=== PATIENT | male | born 1960 | race Caucasian/White ===

== ENCOUNTER → 2020-11-09 | Day surgery (SDC) | payer OTHER ==
[~2020-11-09] VITALS: Ht 175.3 cm; Wt 103.4 kg
[~2020-11-09] MED LIST: ADVIL200 M1 PO; COZAAR25 MG PO; GENTLE LAXATIVE5 M1 PO; MELOXICAM15 MG PO; METFORMIN HCL500 MG PO; PROTONIX40 MG PO
[2020-11-09 07:55] LABS: HCT 40.7 % (42.0-52.0); HGB 14.2 g/dl (13.2-18.0); MCH 33.3 pg (25.0-31.0); MCHC 34.9 g/dL (32.0-36.0); MCV 95.5 fL (78.0-100.0); MPV 10.7 fL (6.0-9.5); RBC 4.26 M/uL (4.70-6.00); RDW 13.2 % (11.5-14.0); WBC 7.5 K/uL (4.0-10.5)
[2020-11-09 08:15] LABS: ALBUMIN 3.5 g/dL (3.4-5.0); BILIRUBIN - TOTAL 0.2 mg/dL (0.2-1.0); BUN/CREAT RATIO (CALC) 9.3 RATIO; CREATININE 0.86 mg/dL (0.67-1.17); GLOBULIN (CALCULATION) 4.2 g/dL; POTASSIUM 3.9 mmol/L (3.5-5.1); TOTAL PROTEIN 7.7 g/dL (6.4-8.2)
== END | disposition home or self-care (01) ==
LOC: FAS 07:15
PROVIDERS: Surgery
DX: D47.2 Monoclonal gammopathy (principal); D70.4 Cyclic neutropenia; E11.9 Type 2 diabetes mellitus without complications; M19.90 Unspecified osteoarthritis, unspecified site; J44.9 Chronic obstructive pulmonary disease, unspecified; F32.9 Major depressive disorder, single episode, unspecified; I10 Essential (primary) hypertension; G47.30 Sleep apnea, unspecified; F17.210 Nicotine dependence, cigarettes, uncomplicated; K21.9 Gastro-esophageal reflux disease without esophagitis; Z79.1 Long term (current) use of non-steroidal anti-inflammatories (NSAID); Z79.84 Long term (current) use of oral hypoglycemic drugs; Z79.899 Other long term (current) drug therapy
CPT/HCPCS: 36415; 80053; 82962; 93005; J1644; J2250; J2704; J7120

== ENCOUNTER 2021-02-07 10:20 | Emergency (ER) | payer OTHER ==
[2021-02-07 15:07] LABS: BASOPHIL 0.7 % (0-2); EOSINOPHIL 3.6 % (0-5); HCT 41.9 % (42.0-52.0); LYMPHOCYTE 37.2 % (15-48); MCH 32.3 pg (25.0-31.0); MCHC 33.4 g/dL (32.0-36.0); MCV 96.8 fL (78.0-100.0); MONOCYTE 6.3 % (0-12); MPV 10.3 fL (6.0-9.5); NEUTROPHIL 52.1 % (41-80); NRBC 0; PLT 246 K/uL (150-400); RBC 4.33 M/uL (4.70-6.00); WBC 8.4 K/uL (4.0-10.5)
[2021-02-07 15:21] LABS: ALBUMIN 3.2 g/dL (3.4-5.0); BILIRUBIN - TOTAL 0.2 mg/dL (0.2-1.0); BUN/CREAT RATIO (CALC) 12.7 RATIO; CREATININE 1.02 mg/dL (0.67-1.17); GLOBULIN (CALCULATION) 4.2 g/dL; POTASSIUM 4.4 mmol/L (3.5-5.1); TOTAL PROTEIN 7.4 g/dL (6.4-8.2)
[2021-02-07 15:24] LABS: BILIRUBIN NEGATIVE (NEGATIVE); BLOOD NEGATIVE Ery/uL (NEGATIVE); CLARITY CLEAR (CLEAR); COLOR YELLOW (YELLOW); GLUCOSE (U) NORMAL (NORMAL); LEUKOCYTES NEGATIVE Leu/uL (NEGATIVE); NITRITE NEGATIVE (NEGATIVE); PROTEIN NEGATIVE (NEGATIVE); UROBILINOGEN 0.2 mg/dL (0.2-1.0)
== END 2021-02-07 15:44 | disposition home or self-care (01) ==
LOC: FER 10:20
PROVIDERS: Internal Medicine
DX: R20.2 Paresthesia of skin (principal); I25.2 Old myocardial infarction; F17.210 Nicotine dependence, cigarettes, uncomplicated; Z95.5 Presence of coronary angioplasty implant and graft
CPT/HCPCS: 36415; 70450; 80053; 81003; 85025